=== PATIENT | male | born 1960 | race Caucasian/White ===

== ENCOUNTER 2025-05-12 09:53 | Outpatient (AMB) | payer OTHER, SELFPAY ==
--- NOTE | 2025-05-12 09:54 | A.OFFPC_ITS ---
Vital Signs 05/12/25 10:03 Height 6 ft 1 in Weight 193 lb 2 oz BMI 25.5 BP 113/69 Blood Pressure Location Rt brachial Position Sitting Respiration 12 Pulse 71 Pulse Source Pulse Oximeter Temp 96.4 F L Temp Source Temporal Artery Scan Pulse Oximetry (%) 96 Oxygen Delivery Method Room Air Intake Visit Reasons: [facility] medication refill/CPE? 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 HPI Details New Patient? ?? Prior PCP:? Dr Lozano Last office visit/CPE:?4 mos ago. CPE > 1 yr Acute issue(s):? Wants to discuss Gabapentin which he was on previously Anx/Dep Screening Positive Back Pain ?DM Colog LDCT ?? PMHx:? Substance abuse Hx. SurgHx:? R shoulder. Discectomy & Fusion 2011 Dr Hawkins. Spenectomy. R Meniscus. FHx:? Dad: DM, Pancreatic CA. Mom: DM, Hypothyroid. SocHx:? 1 ppd cigs, EtOH None. MJ Daily No other drugs HPI Comments History of Present Illness Details Documentation assistance for Nikhil Sood MD, was provided by Lalito Galloway,? Sheet Metal Worker on 05/12/2025 at 10:33 AM EST. I, Dr. Sood, have read, observed, and verified documentation. PFSH Medical History (Updated 05/12/25 @ 10:55 by Nikhil Sood MD) Arthritis Surgical History (Updated 05/12/25 @ 10:08 by Kinza Gibson MA) No pertinent past surgical history Family History (Updated 05/12/25 @ 10:09 by Kinza Gibson MA) Mother Diabetes Thyroid disorder Father Cancer Maternal Grandmother Cancer Paternal Grandmother Cancer Social History (Updated 08/08/25 @ 10:06 by Kinza Gibson MA) Household Members: None Both parents involved: No Caregiver staying overnight: No Housing: Apartment Are you a primary childcare aide to a significant other at home: No Do you presently have visiting nurse or other home services: No 75 years or older and lives alone: No Alcohol intake: never Patient Tobacco Use Status: Never used Tobacco e-Cigarette/Vaping Use: Never Used Second Hand Smoke Exposure: No Use of substances other than those prescribed or required for medical reasons: Yes Substance Use Type: Marijuana service: No Current occupational status: disabled Cognitive needs: No Hearing needs: No Vision needs: Yes (wear glasses) Questionnaire PHQ-9 Over the last 2 weeks, how often have you been bothered by any of the following problems? 1. Little interest or pleasure in doing things: not at all 2. Feeling down, depressed, or hopeless: several days 3. Trouble falling or staying asleep, or sleeping too much: nearly every day 4. Feeling tired or having little energy: several days 5. Poor appetite or overeating: not at all 6. Feeling bad about yourself - or that you are a failure or have let yourself or your family down: several days 7. Trouble concentrating on things, such as reading the newspaper or watching television: several days 8. Moving or speaking so slowly that other people could have noticed. Or the opposite - being so fidgety or restless that you have been moving around a lot more than usual: nearly every day 9. Thoughts that you would be better off or of hurting yourself in some way: not at all Total score: 10 Depression Screening Interpretation: Positive Depression Screening Done: Yes 03873 - PHQ-9 Billing: Yes Source: Developed by Drs. Sung tSanley, Bridgette Bulladr, Demar Bruno and colleagues, with an educational shannan from [employer] (now [employer]). Thrive Questionnaire Date Thrive assessed: 05/12/25 I am a: Patient What is your living situation today?: I have a steady place to live Within the past 12 months, did the food you bought not last and you didn't have the money to get more?: I choose not to answer this question Within the past 12 months, did you worry whether your food would run out before you got money to buy more?: I choose not to answer this question Do you have trouble paying for medicines?: I choose not to answer this question Do you have trouble getting transportation to medical appointments?: Yes Do you have trouble paying your heating and electricity bill?: I choose not to answer this question Do you have trouble taking care of your child, family member or friend?: No Do you have trouble with day-to-day activities such as bathing, preparing meals, shopping, managing finances, etc.?: Yes Are you currently unemployed and looking for a job?: No Are you interested in more education?: I choose not to answer this question Please select the resources that you would like help with: Care for elder or disabled Currently or been in a relationship where the following occur: I choose not to answer THRIVE Score: 1 AUDIT C Alcohol Use Questionnaire (AUDIT-C) 1. How often do you have a drink containing alcohol?: Never 3. How often do you have six or more drinks on one occasion?: Never Total Score: 0 MIGUEL ÁNGEL-7 AMB Questionnaire MIGUEL ÁNGEL-7 Date MIGUEL ÁNGEL - 7 assessed: 05/12/25 Feeling nervous, anxious, or on edge: 1 = Several days Not being able to stop or control worryin = Several days Worrying too much about different things: 1 = Several days Trouble relaxin = More than half the days Being so restless that it is hard to sit still: 2 = More than half the days Becoming easily annoyed or irritable: 2 = More than half the days Feeling afraid as if something awful might happen: 1 = Several days Total MIGUEL ÁNGEL-7 score (0-4 normal; 5-9 mild; 10-14 moderate; 15-21 severe): 10 Source: Developed by Drs. Sung Stanley, Bridgette Bullard, Demar Bruno and colleagues, with an educational shannan from [employer] (now [employer]). MIGUEL ÁNGEL-7 Assessment Billing MIGUEL ÁNGEL-7 Assessment Tool: MIGUEL ÁNGEL-7 Assessment 60740 Review of Systems Const Denies chills, Denies fatigue, Denies fever(s), Denies headache(s) and Denies weakness ENT Denies dizziness and Denies headache(s) Card Denies dyspnea Resp Denies cough, Denies dyspnea, Denies wheezing and Denies other (shortness of breath) Musc Reports back pain, Denies numbness and Denies tingling Neuro Denies dizziness, Denies headache(s), Denies numbness, Denies tingling and Denies weakness Psych Reports anxiety and Reports depression Endo Denies fatigue Aller/Immun Denies wheezing Physical exam (Primary Care) Vital Signs: Last Vital Signs Temp 96.4 F L 05/12/25 10:03 Pulse 71 05/12/25 10:03 Resp 12 05/12/25 10:03 BP 113/69 05/12/25 10:03 Pulse Ox 96 05/12/25 10:03 Oxygen Delivery Method Room Air 05/12/25 10:03 BMI result Body Mass Index 25.5 Tobacco/Smoking Status: Tobacco use Status Tobacco use date assessed 05/12/25 05/12/25 09:56 Patient Tobacco Use Status Never used Tobacco 05/12/25 10:06 e-Cigarette/Vaping Use Never Used 05/12/25 10:06 PHQ-9: PHQ-9 Score PHQ-9: Total score 10 05/12/25 10:01 Depression Screening Interpretation: Positive Thrive Assessment: Date of Thrive Assessment Date Thrive assessed 05/12/25 05/12/25 09:56 Currently or been in a relationship where the following occur: I choose not to answer Const General: well developed; No acute distress Nutritional Appearance: well nourished Orientation/consciousness: patient oriented x3 HENMT Head: Yes normocephalic and Yes atraumatic Eyes General: appearance normal, both eyes and all related structures Pupils: Equal, round and reactive pupils present EOM: EOMs intact bilaterally Resp Effort & Inspection: normal respiratory effort Auscultation: clear to auscultation bilaterally Cardio Rate: regular rate Rhythm: regular rhythm Heart sounds: S1 normal heart sound present, S2 normal heart sound present, no gallops, no murmurs and no rubs Neuro General: patient oriented x3 and gait normal Cranial nerves: Yes Equal, round and reactive pupils present Psych Affect: normal affect Coding Level of Care Code New Pt Level 3 (17857) Diagnoses Depression with anxiety F41.8 Neuropathy G62.9 Back pain M54.9 Smoker F17.200 Screening for colon cancer Z12.11 History of substance abuse F19.11 Neoplasm of uncertain behavior of skin D48.5 Laboratory exam ordered as part of routine general medical examination Z00.00 Family history of diabetes mellitus Z83.3 Additional Codes MIGUEL ÁNGEL-7 Assessment Billing - MIGUEL ÁNGEL-7 Assessment Tool: MIGUEL ÁNGEL-7 Assessment 47829 ([id number]) PHQ-9 - 49451 - PHQ-9 Billing: Yes ([id number]) Assessment & Plan Assessment & Plan (1) Depression with anxiety: Code(s): F41.8 - Other specified anxiety disorders Category: Medical Plan: PHQ-9 and miguel ángel 7 positive Patient has not had a therapist and agrees to a referral Will refer to the nurse navigator to connect therapist (2) Neuropathy: Code(s): G62.9 - Polyneuropathy, unspecified Category: Medical Plan: Bilateral lower extremity neuropathy. Patient has history of low back pain and surgery Also has strong family history of diabetes Unclear underlying cause but will investigate Checking x-rays of his back Checking lab work to rule out diabetes Checking B12 (3) Back pain: Code(s): M54.9 - Dorsalgia, unspecified Category: Medical Plan: Chronic back pain and history of opioid dependency He now attends a methadone clinic No longer on any medications for pain and says that ibuprofen and Tylenol do not Help much. He says that steroid injection in the past did help He says that he mostly just tolerates and suffers from the pain. Had use gabapentin for pain and also neuropathy lower extremities in the past. Will trial this at bedtime - we did discuss that this does not fix an underlying problem. He understands this. Will refer him to Pain Management to look for alternative modalities of pain control (4) Smoker: Code(s): F17.200 - Nicotine dependence, unspecified, uncomplicated Category: Social Hx Plan: Longstanding history of smoking Encouraged smoking cessation and patient says he sometimes thinks about it but was not interested in quitting today. Referred to lung cancer screening program. (5) Screening for colon cancer: Code(s): Z12.11 - Encounter for screening for malignant neoplasm of colon Category: Medical Plan: Last Cologuard test was about 4 years ago Cologuard ordered (6) History of substance abuse: Code(s): F19.11 - Other psychoactive substance abuse, in remission Category: Medical Plan: He is on methadone Stable (7) Neoplasm of uncertain behavior of skin: Code(s): D48.5 - Neoplasm of uncertain behavior of skin Category: Medical Plan: Sun damaged skin and possible actinic keratosis at right posterior upper arm Referred to Dermatology (8) Laboratory exam ordered as part of routine general medical examination: Code(s): Z00.00 - Encounter for general adult medical examination without abnormal findings Category: Medical Plan: Check labs (9) Family history of diabetes mellitus: Code(s): Z83.3 - Family history of diabetes mellitus Category: Medical Plan: Strong family history of diabetes and patient does have some potential symptoms. Check fasting blood sugar and A1c Orders: Orders Comprehensive [place]. Panel Fast Today Z00.00 - Encounter for general adult m edical examination without abnormal findings Complete Blood Count Auto Diff Today Z00.00 - Encounter for general adult medical examination without abnormal findings Lipid Panel Today Z00.00 - Encounter for general adult medical examination without abnormal findings UA CC w/rflx Micro + Cult Today Z00.00 - Encounter for general adult medical examination without abnormal findings Hemoglobin A1c Today R73.01 - Impaired fasting glucose Vitamin B12 and Folate Today E53.8 - Deficiency of other specified B group vitamins XR thoracic spine 2V Today M54.9 - Dorsalgia, unspecified XR lumbar spine 2-3V Today M54.9 - Dorsalgia, unspecified Microalbumin, Random (w Creat) Today I10 - Essential (primary) hypertension Prostate Specific Antigen Scr Today Z12.5 - Encounter for screening for malignant neoplasm of prostate TSH reflex Free T4 Today Z00.00 - Encounter for general adult medical examination without abnormal findings Vitamin D 25-OH Total Today E55.9 - Vitamin D deficiency, unspecified Referrals Pain Management Referral M54.9 - Dorsalgia, unspecified Lung Cancer Screening Referral F17.200 - Nicotine dependence, unspecified, uncomplicated Dermatology Referral D48.5 - Neoplasm of uncertain behavior of skin Cologuard Test Z12.11 - Encounter for screening for malignant neoplasm of colon Nurse Navigator Referral F41.8 - Other specified anxiety disorders Medications: New gabapentin 300 mg PO BEDTIME 30 caps 2RF 30 days
--- OUTSIDE RECORDS SUMMARY | 2025-05-12 09:55 | XMS_ITS | Patient Health Record ---
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 No Points 0 Interpretation Negative Tobacco use other than smoking: Question Answer Notes Are you an other tobacco user? Yes Problems Problem Type SNOMED Code ICD Code Onset Dates Problem Status W/U Status Risk Notes Problem Tinea unguium (468496522) Tinea unguium (B35.1) Active confirmed Plan Of Treatment Pending Test Test Name Order Date [id number] NAIL, 6 OR MORE 02/19/2017 [id number] Plate 02/19/2017 Insurance Providers Payer Name Payer Address Payer Phone Subscriber Number Group Number Insured Name Patient Relationship to Insured Coverage Start Date Coverage End Date Medicare National [employer] [address] [place] [address] [id number] Claus Galvan Self - patient is the insured Medical (General) History Medical History History ICD Code Anxiety disorder Arthritis Back,Hip,and Knee pain Chicken pox Measles Mumps Transfusions Surgical History Surgery Date(Month/Year) Spleen 1982 Shoulder 1984 Back 2011 Rt knee
--- OUTSIDE RECORDS SUMMARY | 2025-05-12 09:56 | XMS_ITS | Clinical Summary ---
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 Name Role Phone Unavailable Primary Care Provider Unavailabl e Surgical History Surgery Date Site/Laterality Comments OTHER SURGICAL HISTORY PROCEDURE: [place] OPEN TX STERNOCLAVICULAR DISLC ACUTE/CHRONIC OTHER SURGICAL HISTORY PROCEDURE: [place] DIR RPR RUPTD ANEURYSM SPLENIC ARTERY BACK SURGERY 2010 PROCEDURE: HISTORICAL BACK SURGERY Medical History Medical History Date Comments Cigarette smoker 01/20/2018 DX:Cigarette sm oker History of heroin abuse ([facility] /HCC V24, CMS/HCC V28) 01/20/2018 DX:History of heroin abuse ( [facility]) Prediabetes DX:Prediabetes Family History Medical History Relation Name Comments Heart attack Aunt Other: pancreatic cancer Father Diabetes Mother Emphysema Paternal Grandmother Uterine cancer Sister Heart attack Uncle Relation Name Status Comments Aunt Brother 1 Alive Brother 2 Alive HIP REPLACEMENT Father PROSTATE CA, CELESTINA NG CA COLECTOMY Mother Alive DM Paternal Grandmother Sister Alive OVARIAN CA Uncle Social History Tobacco Use Types Packs/Day Years Used Date Smoking Tobacco: Every Day Cigarettes Smokeless Tobacco: Never Alcohol Use Standard Drinks/Week Comments No 0 (1 standard drink = 0.6 oz pur e alcohol) Sex and Gender Information Value Date Recorded Sex Assigned at Not on file Legal Sex Male 10:27 AM EST Gender Identity Not on file Sexual Orientation Not on file Obstetrics History Plan of Treatment Health Maintenance Due Date Last Done Comments Pneumococcal Vaccine: 50+ Years (1 of 1 - PCV) 2012 Zoster Vaccines (1 of 2) 2012 COVID-19 Vaccine ( - 2023-2 5 season) 2024 Depression Screening 10/05/2024 Influenza Vaccine (#1) 2025 DTaP,Tdap,and Td Vaccines (3 - Td or Tdap) 04/01/2028 04/01/2018, 03/22/2008 RSV Immunization Adult Patients (1 - 1-dose 75+ series) 2037 HIB Vaccines Aged Out No longer eligi ble based on patient's age to complete this topic HPV Vaccines Aged Out No longer eligi ble based on patient's age to complete this topic Hepatitis A Vaccines Aged Out No long er eligible based on patient's age to complete this topic Hepatitis B Vaccines Aged Out No long er eligible based on patient's age to complete this topic IPV Vaccines Aged Out No longer eligi ble based on patient's age to complete this topic MMR Vaccines Aged Out No longer eligi ble based on patient's age to complete this topic Meningococcal ACWY Vaccine Aged Out N o longer eligible based on patient's age to complete this topic Meningococcal B Vaccine Aged Out No l onger eligible based on patient's age to complete this topic RSV Immunization Patients Under 20 months Aged Out No longer eligible b ased on patient's age to complete this topic Varicella Vaccines Aged Out No longer eligible based on patient's age to complete this topic
[2025-05-12 10:03] VITALS: BP 113/69; PULSE 71; RESP 12; TEMP 35.8; O2SAT 96; BMI 25.5
== END 2025-05-12 12:16 | disposition home or self-care (01) ==
LOC: HO.HMCFM 09:53
PROVIDERS: PCP Family Medicine; Visit Provider Family Medicine
DX: G62.9 Polyneuropathy, unspecified (principal); F41.8 Other specified anxiety disorders; F19.11 Other psychoactive substance abuse, in remission; M54.9 Dorsalgia, unspecified; F17.200 Nicotine dependence, unspecified, uncomplicated; Z12.11 Encounter for screening for malignant neoplasm of colon; D48.5 Neoplasm of uncertain behavior of skin; Z83.3 Family history of diabetes mellitus

== ENCOUNTER → 2025-05-12 09:53 | Outpatient (BNVA) | payer OTHER, SELFPAY | PROVIDERS: PCP Family Medicine; Visit Provider Family Medicine | DX: Z00.00 Encounter for general adult medical examination without abnormal findings (principal); F41.8 Other specified anxiety disorders; G62.9 Polyneuropathy, unspecified; M54.9 Dorsalgia, unspecified; F17.200 Nicotine dependence, unspecified, uncomplicated; F19.11 Other psychoactive substance abuse, in remission; D48.5 Neoplasm of uncertain behavior of skin; E55.9 Vitamin D deficiency, unspecified; I10 Essential (primary) hypertension | CPT/HCPCS: 96127; 99202 ==

== ENCOUNTER 2025-05-30 10:59 | Outpatient (REF) | payer OTHER, SELFPAY ==
--- OUTSIDE RECORDS SUMMARY | 2025-05-30 11:56 | XMS_ITS | Patient Health Record ---
Author Organization [facility] [address] [place] Address [address] [place] [address] Care Team Providers Care [facility] Mason Name Role Phone MarjMarc gutierrez Primary Care [...] W/U Status Risk Notes Problem Tinea unguium ([id number]) Tinea unguium (B35.1) Active confirmed Plan Of Treatment Pending Test Test Name Order Date [id number] NAIL, 6 OR MORE 02/19/2017 [id number] Plate 02/19/2017 Insurance Providers Payer Name Payer Address Payer Phone Subscriber Number Group Number Insured Name Patient Relationship to Insured Coverage Start Date Coverage End Date Medicare National Govt Sv[employer] [address] [place] [address] [id number] Claus Galvan Self - patient is the insured Medical (General) History Medical History History ICD Code Anxiety disorder Arthritis Back,Hip,and Knee pain Chicken pox Measles Mumps Transfusions Surgical History Surgery Date(Month/Year) Spleen 1982 Shoulder 1984 Back 2011 Rt knee
--- OUTSIDE RECORDS SUMMARY | 2025-05-30 11:56 | XMS_ITS | Clinical Summary ---
Author Organization [facility] Address [address] [place] [address] Care Team Providers Care Nut Sheller Name Role Phone Unavailable Primary Care Provider Unavailabl e Surgical History Surgery Date Site/Laterality Comments OTHER SURGICAL HISTORY PROCEDURE: [place] OPEN TX STERNOCLAVICULAR DISLC ACUTE/CHRONIC OTHER SURGICAL HISTORY PROCEDURE: [place] DIR RPR RUPTD ANEURYSM SPLENIC ARTERY BACK SURGERY 2010 PROCEDURE: HISTORICAL BACK SURGERY Medical History Medical History Date Comments Cigarette smoker 01/20/2018 DX:Cigarette sm oker History of heroin abuse ([facility] /HCC V24, CMS/HCC V28) 01/20/2018 DX:History of heroin abuse ( [facility]) Prediabetes DX:Prediabetes Family History Medical History Relation [...]
[2025-05-30 14:15] LABS: MANUAL DIFF FLAG NO
[2025-05-30 14:16] LABS: Appearance Urine Clear; Glucose Urine UA Negative (Negative); PH 6.0 (5.0-9.0); Specific Gravity - Urine 1.025 (1.005-1.025)
[2025-05-30 14:21] LABS: Hematocrit 39.0 % (42.0-52.0); Hemoglobin 13.2 g/dl (14.0-18.0); Imm Gran Abs Auto 0.01 X10*3/uL (0.00-0.03); Imm Gran Pct Auto 0.1 % (0.0-0.4); Lymphocytes Absolute Auto 2.8 X10*3/uL (1.2-4.9); Mean Corpuscular HGB Conc 33.8 g/dl (31.0-36.0); Mean Corpuscular Hemoglobin 31.6 pg (27.0-33.0); Mean Corpuscular Volume 93.3 fL (80.0-98.0); NRBC Abs Auto 0.000 X10*3/uL (0.0-0.012); NRBC Pct Auto 0.0 /100WBC (0.0-0.2); Platelet Count 190 X10*3/uL (160-400); Red Blood Count 4.18 X10*6/uL (4.60-5.80); White Blood Count 7.5 X10*3/uL (4.8-10.8)
[2025-05-30 15:03] LABS: Microalbum/Creatinine Ratio Ur 2.4 ug/mg cr (<30)
[2025-05-30 15:20] LABS: Folate 2.2 ng/mL (> or = 4.0); Vitamin B12 754 pg/mL (200-900)
[2025-05-30 15:23] LABS: Alanine Aminotransferase 25 U/L (0-40); Albumin Level 4.0 g/dL (3.5-5.0); Alkaline Phosphatase 73 U/L (39-117); Anion Gap 11 (12-20); Aspartate Amino Transferase 27 U/L (5-37); Blood Urea Nitrogen 12 mg/dL (9-16); Calcium 8.8 mg/dL (8.4-10.2); Carbon Dioxide 28 mmol/L (22-29); Chloride 106 mmol/L (96-108); Cholesterol 168 mg/dL (<200); Estimated Glomerular Filt Rate > 60; HDL Cholesterol 42 mg/dL (>40); Potassium 4.2 mmol/L (3.3-5.1); Sodium 141 mmol/L (135-145); Total Protein 6.7 g/dL (6.5-8.0); Triglycerides 50 mg/dL (<150)
[2025-05-30 15:29] LABS: Hemoglobin A1C 132.8568 umol/L; Total Hemoglobin (HGBA1C) 3499.7792 umol/L
== END 2025-05-30 11:00 | disposition home or self-care (01) ==
LOC: HO.WFDLDS 10:59
PROVIDERS: Visit Provider Family Medicine
DX: Z00.00 Encounter for general adult medical examination without abnormal findings (principal); I10 Essential (primary) hypertension; E53.8 Deficiency of other specified B group vitamins; R73.01 Impaired fasting glucose; E55.9 Vitamin D deficiency, unspecified; Z12.5 Encounter for screening for malignant neoplasm of prostate
CPT/HCPCS: 36415; 80053; 80061; 81003; 82043; 82306; 82570; 82607; 82746; 83036; 84153; 84443; 85025